=== PATIENT | female | born 1980 | race Caucasian/White ===

== ENCOUNTER 2019-10-08 11:33 | Emergency (ER) | payer OTHER, MEDICAID, SELFPAY ==
[2019-10-08 11:51] VITALS: BP 158/97; PULSE 97; RESP 20; TEMP 36.7; O2SAT 99
--- NOTE | 2019-10-08 11:59 | ED_ITS ---
HPI - Skin/Abscess/Foreign Bdy General Chief complaint: Skin/Abscess/Foreign Body Stated complaint: problem with lymph nodes in both armpits Time Seen by Provider: 10/08/19 11:42 Source: patient Mode of arrival: Ambulatory Limitations: no limitations History of Present Illness HPI narrative: Patient is a 39-year-old female who presents with left axilla boil. She actually had 1 on the right as well which was I and D at an urgent care 2 days ago she has been on Bactrim ever since. However the left 1 has started to developed. MD complaint: abscess/boil Related Data Allergies Allergy/AdvReac Type Severity Reaction Status Date / Time codeine Allergy Verified 10/08/19 11:56 erythromycin base Allergy Verified 10/08/19 11:56 ibuprofen Allergy Verified 10/08/19 11:56 morphine Allergy Verified 10/08/19 11:56 Penicillins Allergy Verified 10/08/19 11:56 Review of Systems Review of Systems Narrative: GENERAL: Denies chills,fever HEENT: Denies throat pain RESPIRATORY: Denies dyspnea, cough, wheezing CARDIOVASCULAR: Denies chest pain, palpitations GASTROINTESTINAL: Denies nausea, vomiting MUSCULOSKELETAL: Denies extremity pain, injury SKIN: See HPI NEUROLOGIC: Denies weakness, dizziness, headache, numbness 8 point review of systems is negative except for those stated above and HPI Patient History Medical History Patient denies medical problems (Acute) Social History Smoking Status: Current every day smoker Smoking Status: Current every day smoker alcohol intake frequency: 0-2 drinks per day Substance Use Type: does not use Exam Initial Vital Signs Initial Vital Signs: Vital Signs Temperature 98.0 F 10/08/19 11:51 Pulse Rate 97 H 10/08/19 11:51 Respiratory Rate 20 10/08/19 11:51 Blood Pressure 158/97 H 10/08/19 11:51 Pulse Oximetry 99 10/08/19 11:51 GENERAL: Well-appearing, well-nourished and in no acute distress. CARDIOVASCULAR: peripheral pulses in tact, cap refill <2 sec RESPIRATORY: No respiratory distress, speaks in full sentences without difficulty EXTREMITIES: Normal range of motion, no clubbing or edema. Neurovascularly intact NEUROLOGICAL: Cranial nerves II through XII grossly intact. Normal gait and speech. SKIN: Left axilla 1 cm by 0.5 cm swelling fluctuation minimal induration Procedures Abscess I/D I&D #1: Site: other (Axilla) Side (if applicable): left Local Anesthetic: lidocaine 1% and with epi Technique: incised with #11 blade Amount of fluid expressed (mL): 1 Irrigation: No Packing used?: none Complications: pain Course Orders Ordered: Discontinued Medications Lidocaine/Epinephrine (Xylocaine 1% W/Epi) 1 ml SUBCUT NOW ONE Stop: 10/08/19 12:04 Last Admin: 10/08/19 12:07 Dose: 1 ml Documented by: CONRAD Vital Signs Vital signs: Vital Signs - 8 hr 10/08/19 11:51 10/08/19 13:21 Temperature 98.0 F Pulse Rate 97 H 94 H Respiratory Rate 20 18 Blood Pressure 158/97 H 154/88 H Pulse Oximetry 99 100 MDM - Skin/Abscess/Foreign Bdy MDM Narrative Medical decision making narrative: Patient is already on Bactrim at this point recommend wait for culture to return Discharge Plan Departure Patient Disposition: Home Clinical Impression: Abscess of skin Qualifiers: Site of cutaneous abscess: extremity Site of cutaneous abscess of extremity: axilla Laterality: left Qualified Code(s): L02.412 - Cutaneous abscess of left axilla Discharge Date/Time: 10/08/19 12:51 Instructions: DI for Skin Abscess Activity Restrictions/Additional Instructions: *You have been diagnosed with a left axilla abscess *What to do: Recommend that you keep area clean and dry with soap and water and apply warm compresses 2-3 times daily. Culture is pending and will take 2-3 day s *Continue to take medications as directed Finish antibiotics as previously prescribed *Follow up with your primary care provider in 2-3 days *Return to ER if you should have increased redness fever drainage or any new, worsening or concerning symptoms
[2019-10-08] MEDS: LIDOCAINE 1% W/EPI 1 ML SUBCUT (12:07)
--- NOTE | 2019-10-08 12:48 | PC.NURSE ---
Pt's L axilla abscess I&D'd by Dr Purvis. Upon arrival into room pt appeared to be unsatisfied with her care. states she was not numb enough for the incision. Would not allow RN to help clean wound. aahsish applied.
[2019-10-08 13:21] VITALS: BP 154/88; PULSE 94; RESP 18; O2SAT 100
== END 2019-10-08 12:51 | disposition home or self-care (01) ==
PROVIDERS: Emergency Provider Emergency Medicine
DX: L02.412 Cutaneous abscess of left axilla (principal)
CPT/HCPCS: 10060; 87070; 87075; 87077; 87147; 87186; 87205; 99281; 99283